=== PATIENT | male | born 1965 | race Caucasian/White ===

== ENCOUNTER 2017-06-26 10:38 | Emergency (ER) | payer BC ==
[2017-06-26 12:05] VITALS: BP 116/76
[2017-06-26] MEDS ORDERED: DOXYcycline CAP(*) 100 MG PO ONE (12:15)
--- NOTE | 2017-06-26 12:20 | UC ---
Skin Complaint HPI - HPI Summary HPI Summary: patient was cutting wood yesterday, found a tick this morning. not engorged, he removed it and brought it in. - History of Current Complaint Chief Complaint: [facility] Time Seen by Provider: 06/26/17 12:00 Stated Complaint: TICK BITE Hx Obtained From: Patient Onset/Duration: Sudden Onset, Lasting Hours Skin Exposure Onset/Duration: Hours Ago Timing: Constant Onset Severity: Mild Current Severity: Mild Location: Discrete Character: Redness Aggravating Factor(s): Nothing Alleviating Factor(s): Nothing - Allergy/Home Medications Allergies/Adverse Reactions: Allergies Allergy/AdvReac Type Severity Reaction Status Date / Time No Known Allergies Allergy Verified 06/26/17 11:59 Home Medications: Home Medications NK [No Home Medications Reported] 06/26/17 [History Confirmed 06/26/17] Review of Systems Constitutional: Negative Skin: Other - tick bite area ENT: Negative Respiratory: Negative Cardiovascular: Negative Gastrointestinal: Negative Genitourinary: Negative Motor: Negative Neurovascular: Negative Musculoskeletal: Negative Neurological: Negative Psychological: Anxious Is Patient Immunocompromised?: No All Other Systems Reviewed And Are Negative: Yes PMH/Surg Hx/FS Hx/Imm Hx Previously Healthy: Yes - Surgical History Surgical History: Yes Surgery Procedure, Year, and Place: RIGHT ROTATOR CUFF. BROKEN [id number]. R/L KNEE /ANKLE - Family History Known Family History: Negative: Cardiac Disease, Hypertension - Social History Alcohol Use: Weekly Alcohol Amount: 1-2 WEEKLY Substance Use Type: None Smoking Status (MU): Never Smoked Tobacco - Immunization History Most Recent Influenza Vaccination: NOT YET 2016 Physical Exam Triage Information Reviewed: Yes Appearance: Well-Appearing, No Pain Distress, Well-Nourished Vital Signs: Initial Vital Signs Temp 97.5 F 06/26/17 12:00 Pulse 83 06/26/17 12:00 Resp 16 06/26/17 12:00 BP 116/76 06/26/17 12:00 Pulse Ox 98 06/26/17 12:00 Vital Signs Reviewed: Yes Eye Exam: Normal ENT Exam: Normal Dental Exam: Normal Neck exam: Normal Respiratory Exam: Normal Cardiovascular Exam: Normal Abdominal Exam: Normal Bowel Sounds: Positive: Present Musculoskeletal Exam: Normal Neurological Exam: Normal Psychological Exam: Normal Skin: Positive: Other - tick bite with mild erythema Course/Dx - Course Course Of Treatment: hx obtained, exam perfromed ,meds reviewed, educated on tick born illness. - Differential Diagnoses - Skin Complaint Differential Diagnoses: Tick Born Illness - Diagnoses Provider Diagnoses: tick bite Discharge - Discharge Plan Condition: Stable Disposition: HOME Patient Education Materials: Tick Bite (ED) Additional Instructions: 1. take the one time dose of medication 2. in 10-14 days look for any signs of lyme. follow up if they develop
== END 2017-06-26 12:29 | disposition home or self-care (01) ==
LOC: EDBD → UCCORT 10:38
DX: S60.569A Insect bite (nonvenomous) of unspecified hand, initial encounter (principal); W57.XXXA Bitten or stung by nonvenomous insect and other nonvenomous arthropods, initial encounter; Y93.89 Activity, other specified
CPT/HCPCS: 99202; A9270-GY; G0463